=== PATIENT | female | born 1985 | race Caucasian/White ===

== ENCOUNTER 2018-03-18 18:36 | Emergency (ER) | payer OTHER, MEDICAID, SELFPAY ==
[2018-03-18 19:02] VITALS: BP 128/90; PULSE 104; RESP 20; TEMP 37.1; O2SAT 99
--- NOTE | 2018-03-18 19:03 | ED.BACK ---
HPI - Back Pain/Injury <EVERETT Echevarria - Last Filed: 03/18/18 20:38> General Chief Complaint: Back Pain/Injury Stated Complaint: left side abdominal pain with lump Time Seen by Provider: 03/18/18 19:03 Source: patient Mode of arrival: ambulatory Limitations: no limitations History of Present Illness HPI Narrative: noticed lump in back area and has pain MD Complaint: back pain Onset (ago): day(s) (1) Duration: constant Similar Symptoms Previously: No Location: right flank Severity: moderate Radiation: none Relieving factors: none Exacerbating factors: movement and deep breaths Context: unknown Associated symptoms: denies other symptoms Related Data Previous Rx's Medication Instructions Recorded levonorgestrel-ethinyl estrad 1 tab PO QDAY #3 pac 03/24/17 [Aviane] naproxen [Naprosyn] 500 mg PO BID #20 tab 03/18/18 Allergies Allergy/AdvReac Type Severity Reaction Status Date / Time No Known Drug Allergies Allergy Mild Unverified 08/13/17 12:45 [NO KNOWN DRUG ALLERGIES] Review of Systems <EVERETT Echevarria - Last Filed: 03/18/18 20:38> Constitutional Reports as per HPI and Reports system reviewed and no additional complaints, except as docu ENT Ears, Nose, Mouth, and Throat: Denies neck pain Cardiovascular Denies chest pain and Denies dyspnea Respiratory Denies dyspnea Gastrointestinal Gastrointestinal: Reports as per HPI, Reports abdominal pain, Denies melena, Denies hematochezia, Denies constipation, Denies diarrhea and Denies vomiting Genitourinary Denies dysuria Musculoskeletal Denies back pain and Denies neck pain Exam <EVERETT Echevarria - Last Filed: 03/18/18 20:38> Initial Vital Signs Initial Vital Signs: Vital Signs Temperature 98.8 F 03/18/18 19:02 Pulse Rate 104 H 03/18/18 19:02 Respiratory Rate 20 03/18/18 19:02 Blood Pressure 128/90 03/18/18 19:02 Pulse Oximetry 99 03/18/18 19:02 Const General: cooperative, healthy appearing, comfortable, well developed and well groomed Nutritional Appearance: average body habitus Orientation: alert, awake and oriented x3 HENMT Head: normal to inspection and normocephalic Ears: hearing grossly normal bilaterally, external ears normal, TM's normal bilaterally and mastoids normal Nose: external nose normal and nares normal Face and sinus: normal facial exam, sinuses nontender and face symmetric Mouth: oral mucosae normal, lip normal, tongue normal, oropharynx normal and moist mucous membranes Teeth and gingiva: dentition normal and gingiva normal Throat: posterior oropharynx normal, tonsils normal and uvula midline Eyes General: appearance normal, both eyes and all related structures Visual Callaway: normal visual callaway by confrontation Eyelids: eyelids normal Conjunctivae: conjunctivae normal Sclera: sclerae normal Pupils: PERRL EOM: EOM intact bilaterally Neck Neck: normal visual inspection, full ROM, no meningeal signs, trachea midline, supple and No lymphadenopathy Chest Chest: normal inspection of the chest and normal palpation of entire chest wall Other: hard knot noted to R posterior rib 11 or 12, and tender to touch Resp Effort & Inspection: normal respiratory effort and able to speak in complete sentences Auscultation: clear to auscultation bilaterally Cardio Rate: regular rate Rhythm: regular rhythm Heart Sounds: S1 normal and S2 normal Back/Spine/Pelvis Cervical Spine: cervical ROM normal Thoracic/Lumbar Spine: thoraco-lumbar ROM normal Skin General: no rashes or lesions noted, elasticity normal, turgor normal and dry skin Neuro General: alert, awake, oriented x3 and meningeal signs present Cognition: normal cognition Speech: speech normal Gait: normal gait Motor: muscle tone normal throughout Sensory Exam: no sensory deficits noted Extrem General: normal to inspection and full ROM Psych Appearance: grossly normal and well kempt Mental Status: mental status grossly normal Speech and Movement: speech and movement normal Mood: congruent mood Affect: normal affect Attitude: cooperative Thought Process: normal Thought Content: normal Judgment: judgment good <Sandor Lester DO - Last Filed: 03/18/18 23:50> Initial Vital Signs Initial Vital Signs: Vital Signs Temperature 98.8 F 03/18/18 19:02 Pulse Rate 104 H 03/18/18 19:02 Respiratory Rate 20 03/18/18 19:02 Blood Pressure 128/90 03/18/18 19:02 Pulse Oximetry 99 03/18/18 19:02 Course <EVERETT Echevarria - Last Filed: 03/18/18 20:38> Course Narrative: xrays and dc plan discussed, pt still has not given urine sample and says she is ready to go and does not have any urine issues, agreed to dc home with rx nsaid Orders Ordered: ED Orders 03/18/18 19:08 XR chest 2V Stat Vital Signs - 8 hr 03/18/18 19:02 03/18/18 20:32 Temperature 98.8 F Pulse Rate 104 H 93 H Respiratory Rate 20 20 Blood Pressure 128/90 122/81 Pulse Oximetry 99 99 <Sandor Lester DO - Last Filed: 03/18/18 23:50> Orders Ordered: ED Orders 03/18/18 19:08 XR chest 2V Stat Vital Signs - 8 hr 03/18/18 19:02 03/18/18 20:32 Temperature 98.8 F Pulse Rate 104 H 93 H Respiratory Rate 20 20 Blood Pressure 128/90 122/81 Pulse Oximetry 99 99 MDM - Back Pain/Injury <EVERETT Echevarria - Last Filed: 03/18/18 20:38> Differential Diagnosis Differential diagnosis: Likely lumbar radiculopathy, renal colic, pyelonephritis, thoracic back pain, discitis and other (costochondritis, lymph node, fatty tumor, cyst) Imaging Data Chest x-ray: Radiologist's impression: [place] [address] XRay Report Signed Patient: Emily Matute#: [id number] : 1985Acct:[id number] Age/Sex: 33 / FDate of Service: 03/18/18 Loc: ED Accession Number: [id number] Procedure: XR chest 2V Ordering Provider: Yareli Mesa PROCEDURE: XR CHEST 2V INDICATIONS: cough TECHNIQUE: 2 views of the chest were acquired. COMPARISON: None. FINDINGS: Surgical changes and devices: None. Lungs and pleura: No pleural effusions or pneumothorax. Lungs are clear. Mediastinum: Mediastinal contours are normal. Heart size is normal. Bones and chest wall: No suspicious bony abnormalities. Soft tissues appear unremarkable. IMPRESSION: No acute cardiopulmonary findings. Dictated by: Ashlyn Medel M.D. on 03/18/2018 at 19:57 Approved by: Ashlyn Medel M.D. on 03/18/2018 at 19:57 Discharge Plan Departure Patient Disposition: Home Clinical Impression: Acute chest wall pain Discharge Date/Time: 03/18/18 20:33 Interventions: ED Discharge Assessment Last Done: 03/18/18 20:32 Instructions: DI for Atypical Chest Pain Prescriptions: New naproxen [Naprosyn] 500 mg tablet 500 mg PO BID Qty: 20 RF: 0 No Action levonorgestrel-ethinyl estrad [Aviane] 1 EACH tablet 1 tab PO QDAY Qty: 3 RF: 4 Referrals: Bina Latham MD [Primary Care Provider] - (follow up recommended in approx 5 days is symptoms persist) <Sandor Lester DO - Last Filed: 03/18/18 23:50> Cosign ED Attending Deisi Attestation: I was available for consultation during this patient's emergency department encounter
--- NOTE | 2018-03-18 19:08 | DI.RAD.S_ITS ---
PROCEDURE: XR CHEST 2V INDICATIONS: cough TECHNIQUE: 2 views of the chest were acquired. COMPARISON: None. FINDINGS: Surgical changes and devices: None. Lungs and pleura: No pleural effusions or pneumothorax. Lungs are clear. Mediastinum: Mediastinal contours are normal. Heart size is normal. Bones and chest wall: No suspicious bony abnormalities. Soft tissues appear unremarkable. IMPRESSION: No acute cardiopulmonary findings. Dictated by: Ashlyn Medel M.D. on 03/18/2018 at 19:57 Approved by: Ashlyn Medel M.D. on 03/18/2018 at 19:57
--- NOTE | 2018-03-18 19:19 | PC.NURSE ---
Denies difficulty with urination or bowel movements. States pain started on her left side/back on Friday. Pain started as body aches and has gradually become worse. Two days ago she noticed a lump on her side in the area. States she has headaches on and off with these symptoms. Denies other symptoms. Pt is calm, playing with her phone on bed.
[2018-03-18 20:32] VITALS: BP 122/81; PULSE 93; RESP 20; O2SAT 99
== END 2018-03-18 20:33 | disposition home or self-care (01) ==
PROVIDERS: Emergency Provider Nurse Practitioner; PCP Family Medicine
DX: R07.89 Other chest pain (principal)
CPT/HCPCS: 71046; 99282; 99283